=== PATIENT | male | born 1960 | race Hispanic/Latino ===

== ENCOUNTER → 2024-02-05 | Outpatient (CLI) | payer OTHER ==
[2024-02-05] MEDS: REGADENOSON 0.4 MG/5 ML PF SYG IVP ONE (14:32)
== END | disposition home or self-care (01) ==
LOC: SHCH 09:02 → EDUNIT# 09:30
PROVIDERS: ATTEND Internal Medicine Cardiovascular Disease
DX: I51.7 Cardiomegaly (principal); I25.119 Atherosclerotic heart disease of native coronary artery with unspecified angina pectoris; R00.1 Bradycardia, unspecified; R06.00 Dyspnea, unspecified
CPT/HCPCS: 78452; 96374; 93017; J2785; A9500 ×2